=== PATIENT | male | born 1950 | race American Indian/Alaskan Native ===

== ENCOUNTER 2017-07-24 14:39 | Emergency (ER) | payer MEDICARE ==
[2017-07-24 14:46] VITALS: BP 160/101
[2017-07-24] MEDS ORDERED: NORVASC PO ONE (16:01)
--- NOTE | 2017-07-24 16:01 | Emergency Department Report ---
ED Recheck HPI - General Chief Complaint: Recheck/Abnormal Lab/Rx Stated Complaint: MED REFILL Time Seen by Provider: 07/24/17 15:08 Source: patient Mode of arrival: Ambulatory Limitations: No Limitations - History of Present Illness Initial Comments: 66-year-old male past medical history hypertension diabetes presents for medication refill. Patient states he could not see his primary care doctor this week so came to the ED requesting refills. Patient denies chest pain palpitations nausea vomiting abdominal pain paresthesias blurry vision and headache shortness of breath. Patient states that he ran out of his amlodipine and metformin yesterday. Has a few of his lisinoprilhydrochlorothiazide left. Patient is requesting referral to primary care. MD Complaint: medication refill request Onset/Timin -: days(s) Returns Today for: request for prescription - Related Data Previous Rx's Medication Instructions Recorded Last Taken Type Lisinopril/Hydrochlorothiazide 1 tab PO QDAY #30 tab 07/24/17 Unknown Rx [Zestoretic 20-25 mg] amLODIPine [Norvasc] 5 mg PO DAILY #30 tab 07/24/17 Unknown Rx metFORMIN [Glucophage] 500 mg PO BID #60 tablet 07/24/17 Unknown Rx Allergies Allergy/AdvReac Type Severity Reaction Status Date / Time No Known Allergies Allergy Unverified 07/24/17 14:47 ED Review of Systems ROS: Stated complaint: MED REFILL Other details as noted in HPI Constitutional: denies: chills, fever Eyes: denies: eye pain, eye discharge, vision change ENT: denies: ear pain, throat pain Respiratory: denies: cough, shortness of breath, wheezing Cardiovascular: denies: chest pain, palpitations Endocrine: no symptoms reported Gastrointestinal: denies: abdominal pain, nausea, diarrhea Genitourinary: denies: urgency, dysuria Musculoskeletal: denies: back pain, joint swelling, arthralgia Skin: denies: rash, lesions Neurological: denies: headache, weakness, paresthesias Psychiatric: denies: anxiety, depression Hematological/Lymphatic: denies: easy bleeding, easy bruising ED Past Medical Hx - Past Medical History Hx Hypertension: Yes Hx Diabetes: Yes - Social History Smoking Status: Never Smoker Substance Use Type: None - Medications Home Medications: Home Medications Medication Instructions Recorded Confirmed Last Taken Type Lisinopril/Hydrochlorothiazide 1 tab PO QDAY #30 tab 07/24/17 Unknown Rx [Zestoretic 20-25 mg] amLODIPine [Norvasc] 5 mg PO DAILY #30 tab 07/24/17 Unknown Rx metFORMIN [Glucophage] 500 mg PO BID #60 tablet 07/24/17 Unknown Rx ED Physical Exam - General Limitations: No Limitations General appearance: alert, in no apparent distress - Head Head exam: Present: atraumatic, normocephalic - Eye Eye exam: Present: normal appearance, PERRL, EOMI - ENT ENT exam: Present: mucous membranes moist - Neck Neck exam: Present: normal inspection, full ROM - Respiratory Respiratory exam: Present: normal lung sounds bilaterally. Absent: respiratory distress - Cardiovascular Cardiovascular Exam: Present: regular rate, normal rhythm. Absent: systolic murmur, diastolic murmur, rubs, gallop - GI/Abdominal GI/Abdominal exam: Present: soft, normal bowel sounds - Rectal Rectal exam: Present: deferred - Extremities Exam Extremities exam: Present: normal inspection - Back Exam Back exam: Present: normal inspection - Neurological Exam Neurological exam: Present: alert, oriented X3, CN II-XII intact, normal gait - Psychiatric Psychiatric exam: Present: normal affect, normal mood - Skin Skin exam: Present: warm, dry, intact, normal color. Absent: rash ED Course Vital Signs 07/24/17 14:40 Temperature 98 F Pulse Rate 88 Respiratory 18 Rate Blood Pressure 160/101 O2 Sat by Pulse 98 Oximetry ED Recheck MDM - Differential Diagnosis Prescription Refill(s) - Medical Decision Making A/P: Medication refill 1-I refilled patient's prescriptions for amlodipine lisinopril- hydrochlorothiazide and metformin 2-patient referred to primary care 3- VS unremarkable- Critical care attestation.: If time is entered above; I have spent that time in minutes in the direct care of this critically ill patient, excluding procedure time. ED Disposition Clinical Impression: Encounter for medication refill Disposition: DC-01 TO HOME OR SELFCARE Is pt being admited?: No Does the pt Need Aspirin: No Condition: Stable Instructions: Chronic Hypertension (ED), Diabetes Mellitus Type 2 in Adults (ED ) Prescriptions: amLODIPine [Norvasc] 5 mg PO DAILY #30 tab Lisinopril/Hydrochlorothiazide [Zestoretic 20-25 mg] 1 tab PO QDAY #30 tab metFORMIN [Glucophage] 500 mg PO BID #60 tablet Referrals: [facility] [Outside] - 3-5 Days [facility] [Outside] - 3-5 Days Time of Disposition: 15:55
== END 2017-07-24 16:05 | disposition home or self-care (01) ==
LOC: ED 14:39
DX: Z76.0 Encounter for issue of repeat prescription (principal); I10 Essential (primary) hypertension; E11.9 Type 2 diabetes mellitus without complications
CPT/HCPCS: 99282

== ENCOUNTER 2018-03-17 23:32 | Observation (INO) | payer MEDICARE ==
[2018-03-18 00:09] LABS: Basophils % (Auto) 0.7 % (0.0-1.8); Eosinophils # (Auto) 0.1 K/mm3 (0.0-0.4); Eosinophils % (Auto) 1.4 % (0.0-4.3); Hemoglobin 12.4 gm/dl (11.8-15.2); Lymphocytes # (Auto) 1.2 K/mm3 (1.2-5.4); Lymphocytes % (Auto) 30.6 % (13.4-35.0); Mean Corpuscular HGB Conc 33 % (32-34); Mean Corpuscular Hemoglobin 31 pg (28-32); Mean Corpuscular Volume 94 fl (84-94); Monocytes # (Auto) 0.3 K/mm3 (0.0-0.8); Monocytes % (Auto) 8.4 % (0.0-7.3); Platelet Count 149 K/mm3 (140-440); Red Blood Count 4.02 M/mm3 (3.65-5.03); Red Cell Distribution Width 14.3 % (13.2-15.2)
[2018-03-18 00:36] LABS: INR 1.17 (0.87-1.13)
[2018-03-18 00:37] LABS: Partial Thromboplastin Time 32.8 Sec. (24.2-36.6)
[2018-03-18 00:39] LABS: BUN/Creatinine Ratio 13; Blood Urea Nitrogen 10 mg/dL (9-20); Calcium 9.4 mg/dL (8.4-10.2); Hemolysis Index 7
--- NOTE | 2018-03-18 00:56 | Cat Scan Report ---
FINAL REPORT PROCEDURE: CT HEAD/BRAIN WO CON TECHNIQUE: Computerized tomography of the head was performed without contrast material. HISTORY: headache, patient take eliquis hx stroke COMPARISON: No prior studies are available for comparison. FINDINGS: Skull and scalp: Normal. Paranasal sinuses: Normal. Ventricles and subarachnoid spaces: Normal. Cerebrum: There is no evidence of acute intracranial hemorrhage, hematoma, infarction or midline displacement. There is moderate atrophy and periventricular deep white matter changes. Areas of hypoattenuation in the right temporal and frontal lobes consistent with old infarctions.. Cerebellum and brainstem: No evidence of hemorrhage, acute infarction or mass. Vasculature: Normal. Comments: None. IMPRESSION: There is no evidence of an acute intracranial process. Moderate atrophy and periventricular deep white matter changes. 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
--- NOTE | 2018-03-18 00:59 | Emergency Department Report ---
ED Chest Pain HPI - General Chief Complaint: Chest Pain Stated Complaint: CP/HEAD PAIN Time Seen by Provider: 03/18/18 00:03 Source: patient Mode of arrival: Stretcher Limitations: No Limitations - History of Present Illness Initial Comments: 67-year-old male presents to the emergency department via EMS from his ECF at [facility] with complaint of sharp left-sided chest pain, 10 out of 10 in intensity, started about 5 hours ago. At the same time the patient has developed a generalized headache. He denies any vision change, slurred speech, shortness of breath, nausea, vomiting. The chest pain has improved but the patient still has a headache and the lightheadedness. He has a past medical history includes CVA 2, atrial fibrillation, non-insulin- dependent diabetes, hypertension. His primary care physician is listed as Dr. Jim Zavala. EMS found the patient to have very elevated blood pressure. Patient has a history of some left-sided weakness and slurred speech and feels like this may have worsened. He was receiving his nighttime medication at 6 PM when he told staff that he felt like he was having a stroke. - Related Data Home Medications Medication Instructions Recorded Confirmed Last Taken Amlodipine Besylate [Norvasc] 5 mg PO QDAY 03/18/18 03/18/18 Unknown Apixaban [Eliquis] 5 mg PO BID 03/18/18 03/18/18 Unknown Aspirin 81 mg PO QDAY 03/18/18 03/18/18 Unknown Insulin Lispro [Humalog 100 See Protocol SQ BIDAC 03/18/18 03/18/18 Unknown UNITS/ML Kwikpen] Lisinopril 20 mg PO QDAY 03/18/18 03/18/18 Unknown Metoprolol Xl [Metoprolol 200 mg PO QDAY 03/18/18 03/18/18 Unknown SUCCINATE ER TAB] cloNIDine-TTS PATCH [Catapres-Tts 1 patch TD QWEEK 03/18/18 03/18/18 03/11/18 Patch] hydrALAZINE [Apresoline] 25 mg PO TID 03/18/18 03/18/18 Unknown Previous Rx's Medication Instructions Recorded Last Taken Type metFORMIN [Glucophage] 500 mg PO BID #60 tablet 07/24/17 Unknown Rx Allergies Allergy/AdvReac Type Severity Reaction Status Date / Time No Known Allergies Allergy Unverified 07/24/17 14:47 Heart Score - HEART Score History: Moderately suspicious EKG: Non-specific Age: > 65 Risk factors: > 3 risk factors or hx of atherosclerotic disease Troponin: < normal limit HEART Score: 6 - Critical Actions Critical Actions: 4-6 pts:12-16.6% risk of adverse cardiac event. Should be admitted ED Review of Systems ROS: Stated complaint: CP/HEAD PAIN Other details as noted in HPI Comment: All other systems reviewed and negative Constitutional: denies: chills, fever Eyes: denies: eye pain, eye discharge, vision change ENT: denies: ear pain, throat pain Respiratory: denies: cough, shortness of breath, wheezing Cardiovascular: chest pain. denies: palpitations Gastrointestinal: denies: abdominal pain, nausea, diarrhea Genitourinary: denies: urgency, dysuria Musculoskeletal: denies: back pain, arthralgia Skin: denies: rash, lesions Neurological: headache, weakness ED Past Medical Hx - Past Medical History Previous Medical History?: Yes Hx Hypertension: Yes Hx CVA: Yes Hx Diabetes: Yes Additional medical history: Afib - Surgical History Past Surgical History?: No - Social History Smoking Status: Never Smoker Substance Use Type: None - Medications Home Medications: Home Medications Medication Instructions Recorded Confirmed Last Taken Type metFORMIN [Glucophage] 500 mg PO BID #60 tablet 07/24/17 Unknown Rx Amlodipine Besylate [Norvasc] 5 mg PO QDAY 03/18/18 03/18/18 Unknown History Apixaban [Eliquis] 5 mg PO BID 03/18/18 03/18/18 Unknown History Aspirin 81 mg PO QDAY 03/18/18 03/18/18 Unknown History Insulin Lispro [Humalog 100 See Protocol SQ BIDAC 03/18/18 03/18/18 Unknown History UNITS/ML Kwikpen] Lisinopril 20 mg PO QDAY 03/18/18 03/18/18 Unknown History Metoprolol Xl [Metoprolol 200 mg PO QDAY 03/18/18 03/18/18 Unknown History SUCCINATE ER TAB] cloNIDine-TTS PATCH [Catapres-Tts 1 patch TD QWEEK 03/18/18 03/18/18 03/11/18 History Patch] hydrALAZINE [Apresoline] 25 mg PO TID 03/18/18 03/18/18 Unknown History ED Physical Exam - General Limitations: No Limitations - Other Other exam information: GENERAL: The patient is well-developed well-nourished. HENT: Normocephalic. Atraumatic. Patient has moist mucous membranes. EYES: Extraocular motions are intact. Pupils equal reactive to light bilaterally. No nystagmus. NECK: Supple. Trachea is midline. CHEST/LUNGS: Clear to auscultation. There is no respiratory distress noted. HEART/CARDIOVASCULAR: Regular. There is no tachycardia. There is no murmur. ABDOMEN: Abdomen is soft, nontender. Patient has normal bowel sounds. There is no abdominal distention. SKIN: Skin is warm and dry. NEURO: The patient is awake, alert, and oriented. The patient is cooperative. The patient has no focal neurologic deficits. There is a slight left-sided nasolabial fold paresis. There is some mumbling or mild slurring of speech. No pronator drift. No dysmetria. MUSCULOSKELETAL: There is no tenderness or deformity. There is no limitation range of motion. There is no evidence of acute injury. ED Course Vital Signs 03/17/18 03/18/18 03/18/18 23:44 00:54 00:57 Temperature 98.4 F Pulse Rate 93 H 89 Respiratory 19 13 16 Rate Blood Pressure 164/116 174/129 Blood Pressure 164/116 [Right] O2 Sat by Pulse 98 99 98 Oximetry 03/18/18 01:18 Temperature Pulse Rate 78 Respiratory Rate Blood Pressure 188/126 Blood Pressure [Right] O2 Sat by Pulse Oximetry - Reevaluation(s) Reevaluation #1: NIH Stroke Scale/Score (NIHSS) RESULT SUMMARY: 2 points NIH Stroke Scale INPUTS: 1A: Level of consciousness > 0 = Alert; keenly responsive 1B: Ask month and age > 0 = Both questions right 1C: 'Blink eyes' & 'squeeze hands' > 0 = Performs both tasks 2: Horizontal extraocular movements > 0 = Normal 3: Visual singh > 0 = No visual loss 4: Facial palsy > 1 = Minor paralysis (flat nasolabial fold, smile asymetry) 5A: Left arm motor drift > 0 = No drift for 10 seconds 5B: Right arm motor drift > 0 = No drift for 10 seconds 6A: Left leg motor drift > 0 = No drift for 5 seconds 6B: Right leg motor drift > 0 = No drift for 5 seconds 7: Limb Ataxia > 0 = No ataxia 8: Sensation > 0 = Normal; no sensory loss 9: Language/aphasia > 0 = Normal; no aphasia 10: Dysarthria > 1 = Mild-moderate dysarthria: slurring but can be understood 11: Extinction/inattention > 0 = No abnormality JERONIMO score - Jeronimo Score Age > 65: (1) Yes Aspirin use within the Past 7 Days: (0) No 3 or more CAD Risk Factors: (1) Yes 2 or more Angina events in past 24 hrs: (1) Yes Known CAD with more than 50% Stenosis: (0) No Elevated Cardiac Markers: (0) No ST Deviation Greater than 0.5mm: (0) No JERONIMO Score: 3 ED Medical Decision Making - Lab Data Result diagrams: 03/17/18 23:45 03/17/18 23:45 - EKG Data -: EKG Interpreted by Me Rate: normal - EKG Data When compared to previous EKG there are: previous EKG unavailable Interpretation: other (atrial fibrillation, rate of 94, PVCs, nonspecific T waves) - Radiology Data Radiology results: report reviewed, image reviewed interpreted by me: Chest x-ray does not show any acute process. There are no pleural effusions, obvious pneumonia and there is no pneumothorax. PROCEDURE: CT HEAD/BRAIN WO CON TECHNIQUE: Computerized tomography of the head was performed without contrast material. HISTORY: headache, patient take eliquis hx stroke COMPARISON: No prior studies are available for comparison. FINDINGS: Skull and scalp: Normal. Paranasal sinuses: Normal. Ventricles and subarachnoid spaces: Normal. Cerebrum: There is no evidence of acute intracranial hemorrhage, hematoma, infarction or midline displacement. There is moderate atrophy and periventricular deep white matter changes. Areas of hypoattenuation in the right temporal and frontal lobes consistent with old infarctions.. Cerebellum and brainstem: No evidence of hemorrhage, acute infarction or mass. Vasculature: Normal. Comments: None. IMPRESSION: There is no evidence of an acute intracranial process. Moderate atrophy and periventricular deep white matter changes. 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 Transcribed By: [facility] Dictated By: SANIYA RODRIGUEZ MD Electronically Authenticated By: SANIYA RODRIGUEZ MD Signed Date/Time: 03/18/18 0051 - Medical Decision Making Patient comes in with complaint of some chest pain, headache. There is some questionable concern for some worsening of his known residual deficits. The patient says that his speech might be a little worse and question we had some worsening of his left-sided weakness. However on examination, the patient does not appear to have any significant weakness, any pronator drift or any dysmetria. There is more of a mumbling of his speech than there is true slurring. There is no obvious last known well time. The patient has been here since about 11:30 PM and allegedly told someone of his concerns and her symptoms around 6 PM this evening. Doing an NIH stroke scale, the patient would be 2. He would be outside of any TPA window. CT of the head shows previous right-sided infarcts but no acute process. EKG shows atrial fibrillation with controlled rate with no signs of ST elevation MO. Chest x- ray does not show any acute process. Patient does have some hypertension and has been given a few doses of antihypertensive medication. I spoke with the patient's daughter, La, who is aware of the patient's presentation to the hospital. 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 The patient is on Eliquis and gets it compliantly and therefore he is lower suspicion for a pulmonary embolism as the source of his chest pain. The chest pain has greatly improved if not resolved at this point. However for all the patient's different symptoms, his comorbidities, the patient will be admitted to the hospital for further evaluation and treatment and has been accepted for admission by the hospitalist, Dr. Eng. - Differential Diagnosis CVA, TIA, MO, costochondritis, GERD, pneumonia Critical Care Time: No Critical care attestation.: If time is entered above; I have spent that time in minutes in the direct care of this critically ill patient, excluding procedure time. ED Disposition Clinical Impression: Hypertensive urgency Headache Qualifiers: Headache type: unspecified Headache chronicity pattern: unspecified pattern Intractability: not intractable Qualified Code(s): R51 - Headache Chest pain Qualifiers: Chest pain type: unspecified Qualified Code(s): R07.9 - Chest pain, unspecified Disposition: OP ADMIT IP TO THIS HOSP Is pt being admited?: Yes Condition: Fair Instructions: Chest Pain (ED) Referrals: PRIMARY CARE, [Primary Care Provider] - 3-5 Days Time of Disposition: 01:40
[2018-03-18] MEDS ORDERED: LOPRESSOR IV ONE (01:07)
--- NOTE | 2018-03-18 01:12 | XRay Report ---
FINAL REPORT PROCEDURE: XR CHEST 1V AP TECHNIQUE: Chest radiograph anteroposterior view. CPT 06202 HISTORY: CP COMPARISON: No prior studies are available for comparison. FINDINGS: Heart: The heart size is slightly pronounced. Mediastinum/Vessels: Normal. Lungs/Pleural space: Normal. Bony thorax: No acute osseous abnormality. Life support devices: None. IMPRESSION: There is no evidence of an acute infiltrate or effusion. Mild cardiomegaly..
[2018-03-18] MEDS ORDERED: APRESOLINE IV ONE (01:39)
[2018-03-18] MEDS ORDERED: ZOFRAN IV PRN (02:22)
[2018-03-18] MEDS ORDERED: D50W (25GM) Syringe IV PRN (02:22)
[2018-03-18] MEDS ORDERED: PERCOCET 5/325 PO PRN (02:22)
[2018-03-18] MEDS ORDERED: SODIUM CHLORIDE FLUSH SYRINGE 10 ML IV PRN (02:22)
[2018-03-18] MEDS ORDERED: TYLENOL PO PRN (02:22)
--- NOTE | 2018-03-18 02:26 | History and Physical Report ---
History of Present Illness Date of examination: 03/18/18 History of present illness: 67-year-old woman wit history of hypertension, diabetes, A. fib, CVA comes to the emergency room complaining of chest pain located in the left chest that started today. he is unable to describe the pain, constant, 5/10, no radiation , he cannot identify exacerbating or relieving factors. No shortness of breath , nausea vomiting, diaphoresis. Also complaining of a headache which is then resolved Review of systems Constitutional: no weight loss, chills, fever Ears, eyes, nose, mouth and throat: no nasal congestion, no nasal discharge, no sinus pressure, no vision change, no red eye. Neck: No neck pain or rigidity. Cardiovascular: no palpitations Respiratory: no cough, shortness of breath Gastrointestinal: no abdominal pain hematochezia Genitourinary : no frequency , no hematuria Musculoskeletal: no joint swelling or muscle ache Integumentary: no rash, no pruritis Neurological: no parathesias, no numbness, no focal weakness Endocrine: no cold or heat intolerance, no polyuria or polydipsia Hematologic/Lymphatic: no easy bruising, no easy bleeding, no gland swelling Allergic/Immunologic: no urticaria, no angioedema. PAST MEDICAL HISTORY: Hypertension, diabetes, A. fib, CVA PAST SURGICAL HISTORY: None SOCIAL HISTORY: No alcohol, no drugs, +tobacco FAMILY HISTORY:Hypertension Medications and Allergies Allergies Allergy/AdvReac Type Severity Reaction Status Date / Time No Known Allergies Allergy Unverified 07/24/17 14:47 Home Medications Medication Instructions Recorded Confirmed Last Taken Type metFORMIN [Glucophage] 500 mg PO BID #60 tablet 07/24/17 03/18/18 Unknown Rx Amlodipine Besylate [Norvasc] 5 mg PO QDAY 03/18/18 03/18/18 Unknown History Apixaban [Eliquis] 5 mg PO BID 03/18/18 03/18/18 Unknown History Aspirin 81 mg PO QDAY 03/18/18 03/18/18 Unknown History Insulin Lispro [Humalog 100 See Protocol SQ BIDAC 03/18/18 03/18/18 Unknown History UNITS/ML Kwikpen] Lisinopril 20 mg PO QDAY 03/18/18 03/18/18 Unknown History Metoprolol Xl [Metoprolol 200 mg PO QDAY 03/18/18 03/18/18 Unknown History SUCCINATE ER TAB] cloNIDine-TTS PATCH [Catapres-Tts 1 patch TD QWEEK 03/18/18 03/18/18 03/11/18 History Patch] hydrALAZINE [Apresoline] 25 mg PO TID 03/18/18 03/18/18 Unknown History Active Meds: Active Medications Acetaminophen (Tylenol) 650 mg PO Q4H PRN PRN Reason: Pain MILD(1-3)/Fever >100.5/FREIRE Dextrose (D50w (25gm) Syringe) 50 ml IV PRN PRN PRN Reason: Hypoglycemia Enoxaparin Sodium (Lovenox) 30 mg SUB-Q QDAY DEREK Insulin Human Lispro (Humalog) 0 unit SUB-Q ACHS DEREK; Protocol Ondansetron HCl (Zofran) 4 mg IV Q8H PRN PRN Reason: Nausea And Vomiting Oxycodone/Acetaminophen (Percocet 5/325) 1 tab PO Q4H PRN PRN Reason: Pain, Moderate (4-6) Exam - Physical Exam Narrative exam: Gen. appearance: Patient lying in bed, no apparent distress HEENT: Normocephalic, atraumatic, pupils equally round and reactive to light, extraocular movement intact, and no sclericterus,. No JVD or thyromegaly or nodule,neck supple, no carotid bruit ,mucous membranes moist, no exudate or erythema Heart: S1, S2, regular rate and rhythm Lungs: Clear bilaterally, breathing comfortable Abdomen: Positive bowel sounds, non-tender, nondistended, no organomegaly Extremity:no edema cyanosis, clubbing Skin: no rash, dry, warm Neuro: Oriented 3, cranial nerves II-12 intact, speech is fluent, motor and sensory intact - Constitutional Vitals: Temp Pulse Resp BP Pulse Ox 98.4 F 76 25 H 164/93 98 03/17/18 23:44 03/18/18 02:00 03/18/18 02:00 03/18/18 02:00 03/18/18 02:00 Results - Labs CBC & Chem 7: 03/18/18 03:14 03/18/18 03:14 Labs: Abnormal lab results 03/17/18 03/17/18 03/17/18 Range/Units 23:45 23:45 23:45 WBC 4.0 L (4.5-11.0) K/mm3 Sharkey % (Auto) 8.4 H (0.0-7.3) % PT 15.6 H (12.2-14.9) Sec. INR 1.17 H (0.87-1.13) Glucose 195 H (75-100) mg/dL - Imaging and Cardiology EKG: image reviewed Chest x-ray: report reviewed Assessment and Plan Assessment Chest pain, rule out ACS Hypertension Diabetes A. fib History of CVA Plan Admit to medicine Check cardiac enzymes, stress test, percocet for pain Check fingersticks initiate insulin sliding scale Continue appropriate outpatient medications DVT prophylaxis
[2018-03-18 03:34] LABS: Basophils % (Auto) 0.5 % (0.0-1.8); Eosinophils # (Auto) 0.1 K/mm3 (0.0-0.4); Eosinophils % (Auto) 1.9 % (0.0-4.3); Hematocrit 37.6 % (35.5-45.6); Hemoglobin 12.4 gm/dl (11.8-15.2); Lymphocytes % (Auto) 27.3 % (13.4-35.0); Mean Corpuscular HGB Conc 33 % (32-34); Mean Corpuscular Hemoglobin 31 pg (28-32); Mean Corpuscular Volume 94 fl (84-94); Monocytes # (Auto) 0.4 K/mm3 (0.0-0.8); Monocytes % (Auto) 9.7 % (0.0-7.3); Platelet Count 147 K/mm3 (140-440); Red Blood Count 3.99 M/mm3 (3.65-5.03); Red Cell Distribution Width 14.2 % (13.2-15.2)
[2018-03-18 04:02] LABS: BUN/Creatinine Ratio 11; Blood Urea Nitrogen 8 mg/dL (9-20); Calcium 9.2 mg/dL (8.4-10.2); Hemolysis Index 7
[2018-03-18] MEDS ORDERED: HumaLOG SUB-Q SCH (07:30)
[2018-03-18] MEDS ORDERED: APRESOLINE PO SCH (08:00)
[2018-03-18] MEDS ORDERED: LEXISCAN IV ONE (09:32)
[2018-03-18] MEDS ORDERED: CATAPRES-TTS PATCH TD SCH (10:00)
[2018-03-18] MEDS ORDERED: BABY ASPIRIN PO SCH (10:00)
[2018-03-18] MEDS ORDERED: NORVASC PO SCH (10:00)
[2018-03-18] MEDS ORDERED: LOVENOX SUB-Q SCH (10:00)
[2018-03-18] MEDS ORDERED: SODIUM CHLORIDE FLUSH SYRINGE 10 ML IV SCH (10:00)
[2018-03-18] MEDS ORDERED: ELIQUIS PO SCH (10:00)
[2018-03-18 11:25] VITALS: BP 168/102
--- NOTE | 2018-03-18 11:26 | Treadmill Report ---
NUCLEAR PERFUSION SCAN REFERRING PHYSICIAN: ER physician, Ronda Eng MD PROTOCOL: The patient was brought to the stress lab in a postabsorptive state, given 10 mCi of technetium 99m at rest. The patient underwent rest imaging. The patient underwent Lexiscan stress test. At peak stress, the patient was given 26 mCi of technetium 99m. Shortly thereafter, the patient underwent stress imaging. Raw imaging reveals mild GI artifact, no significant motion artifact. SPECT image examined carefully in the long axis, vertical long axis, short axis views. INTERPRETATION: There is normal homogenous uptake of radioisotope in all reported segments. There is no evidence of significant fixed or reversible perfusion defects suggestive of prior infarction or ischemia. No gating is performed due to atrial fibrillation. CONCLUSIONS: 1. Normal myocardial perfusion scan without evidence of active. ischemia prior to infarction. 2. No gating is performed due to the presence of atrial fibrillation. JOB# [id number] KAR/NITA
[2018-03-18] MEDS ORDERED: GLUCOPHAGE PO SCH (13:00)
[2018-03-18] MEDS ORDERED: ZESTRIL PO SCH (13:00)
--- NOTE | 2018-03-18 15:12 | Discharge Summary ---
Providers - Providers Date of Admission: 03/18/18 02:22 Date of discharge: 03/18/18 Attending physician: JIM CRAWFORD Primary care physician: [employer]MENT [employer] Hospitalization Condition: Stable Hospital course: Patient is a 67-year-old man from [facility] with a history of hypertension, diabetes, A. fib and CVA who presented to ED with left chest pains. No shortness of breath, nausea vomiting, diaphoresis. Also complained of a headache which had resolved. Diagnoses: Chest pain, atypical, costochondritis most likely Hypertension Diabetes A. fib History of CVA Plan Admit to medicine Check cardiac enzymes, stress test, percocet for pain Check fingersticks initiate insulin sliding scale Continue appropriate outpatient medications DVT prophylaxis Stress test negative Back to [facility] Disposition: [id number]/[place]-[id number] [facility] Time spent for discharge: 32 minutes Core Measure Documentation - Palliative Care Palliative Care/ Comfort Measures: Not Applicable - Core Measures Any of the following diagnoses?: none - VTE Discharge Requirements Deep Vein Thrombosis/Pulmonary Embolism Present on Admission: No Has pt received <5 days of overlap therapy or INR<2.0: No Anticoagulant overlap therapy prescribed at discharge: No Contraindication No Overlap Therapy order at DC: Not Indicated Exam - Physical Exam Narrative exam: GEN: WDWN, NAD, Awake, Alert, Orientated x 3 HEENT: NCAT, EOMI, PERRL, OP Clear NECK: supple, no adenopathy, no thyromegaly, no JVD CVS/HEART: irregular, normal S1S2, pulses present bilaterally CHEST/LUNGS: CTA B, Symmetrical chest expansion, good air entry bilaterally, reproducible cw tenderness GI/Abdomen: soft, NTND, good bowel sounds, no guarding or rebound /Bladder: no suprapubic tenderness, no CVA or paraspinal tenderness EXT/Skin: no c/c/e, no obvious rash MSK: FROM x 4 Neuro: CN 2-12 grossly intact, no new focal deficits Psych: calm - Constitutional Vitals: Temp Pulse Resp BP Pulse Ox 98.4 F 74 16 168/102 98 03/17/18 23:44 03/18/18 11:25 03/18/18 08:16 03/18/18 11:25 03/18/18 08:16 Plan Activity: other (no strenous activities) Diet: low salt Special Instructions: record daily BP diary, record blood sugar diary Follow up with: PRIMARY CARE, [Primary Care Provider] - 3-5 Days
== END 2018-03-18 14:30 ==
LOC: ED 23:32 → 4A 03-18 02:22 → INTOOBSV 03-18 02:22
PROVIDERS: ADMIT Internal Medicine; ATTEND Internal Medicine
DX: R07.89 Other chest pain (principal); I10 Essential (primary) hypertension; E11.9 Type 2 diabetes mellitus without complications; I48.91 Unspecified atrial fibrillation; Z82.49 Family history of ischemic heart disease and other diseases of the circulatory system; Z86.73 Personal history of transient ischemic attack (TIA), and cerebral infarction without residual deficits; R51 Headache
CPT/HCPCS: 36415; 70450; 71045; 78452; 80048; 82962; 84484; 85025; 85610; 85730; 93005; 93010; 93017; 93306; 96374; 96375; 99285; A9502; G0378; J0360; J2785